=== PATIENT | female | born 1945 | race Caucasian/White ===

== ENCOUNTER 2024-07-18 18:52 | Emergency (ER) | payer BC ==
[2024-07-18] MEDS ORDERED: ACETAMINOPHEN 500 MG TABLET (FP) ONE ×2 (18:56→19:03)
[2024-07-18] MEDS: ACETAMINOPHEN 500 MG TABLET (FP) PO ONE (19:00)
[2024-07-18] MEDS ORDERED: ceFAZolin SODIUM 1 GM VIAL ONE ×2 (19:02→19:22)
[2024-07-18] MEDS ORDERED: DIPHTH,PERTUSS(ACELL),TET 0.5 ML DISP.SYRIN IM ONE (19:03)
[2024-07-18 19:11] VITALS: BP 140/77; PULSE 94; RESP 20; TEMP 98.3; BMI 22.4
[2024-07-18 19:15] LABS: ABSOLUTE IMMATURE GRANULOCYTES 0.02 x10^3/uL (0.0-0.031); BASOPHILS # 0.04 x10^3/uL (0.01-0.08); EOSINOPHIL % 2.3 % (0.7-5.8); EOSINOPHILS # 0.26 x10^3/uL (0.04-0.36); HEMATOCRIT 43.1 % (34.1-44.9); HEMOGLOBIN 14.7 g/dL (11.2-15.7); MCHC 34.1 g/dl (32.2-35.5); MEAN CELL VOLUME 91.3 fl (79.4-94.8); MEAN PLT VOLUME 9.9 fl (9.4-12.3); MONOCYTE # 0.84 x10^3/uL (0.24-0.86); MONOCYTE % 7.6 % (4.7-12.5); PLATELET COUNT 300 x10^3/uL (182-369); RDW 12.7 % (12.4-16.6)
[2024-07-18] MEDS: DIPHTH,PERTUSS(ACELL),TET 0.5 ML DISP.SYRIN IM ONE (19:15)
[2024-07-18] MEDS: CEFAZOLIN SODIUM 2 GM VIAL IVPB ONE (19:21)
[2024-07-18 19:27] LABS: INR 0.95 (0.83-1.09); PROTHROMBIN TIME (PATIENT) 10.6 SEC (9.7-13.0)
[2024-07-18 19:30] LABS: ACTIVATED PTT 24.6 SECONDS (25.2-36.5)
[2024-07-18 19:46] LABS: ALBUMIN 4.4 g/dl (3.4-5.0); BILIRUBIN,TOTAL 0.6 mg/dl (0.2-1); CALCIUM 10.7 mg/dl (8.5-10.1); CREATININE 1.1 mg/dl (0.6-1.3); POTASSIUM 4.1 mmol/L (3.5-5.1); TOT PROT 7.1 g/dl (6.4-8.2)
[2024-07-18] MEDS ORDERED: LIDO 2%/EPI 1:200000 PRESRVFRE (20 ML SDVIAL) ONE (22:30)
== END 2024-07-18 23:28 | disposition home or self-care (01) ==
LOC: FER 18:52
PROC: 3E03329 Introduction of Other Anti-infective into Peripheral Vein, Percutaneous Approach (ICD-10-PCS; principal; 2024-07-18)
PROC: 3E0234Z Introduction of Serum, Toxoid and Vaccine into Muscle, Percutaneous Approach (ICD-10-PCS; 2024-07-18)
DX: S02.2XXB Fracture of nasal bones, initial encounter for open fracture (principal); S80.01XA Contusion of right knee, initial encounter; S60.511A Abrasion of right hand, initial encounter; S80.212A Abrasion, left knee, initial encounter; Z23 Encounter for immunization; W01.198A Fall on same level from slipping, tripping and stumbling with subsequent striking against other object, initial encounter
CPT/HCPCS: 36415; 70450-TC; 70486-TC; 72125-TC; 80053; 85025; 85610; 85730; 90471; 90715; 96374; 99285-25